=== PATIENT | female | born 1960 | race Caucasian/White ===

== ENCOUNTER 2020-08-19 08:20 | Emergency (ER) | payer MEDICAID ==
[~2020-08-19] VITALS: Ht 165.1 cm; Wt 100.2 kg
[2020-08-19 08:28] VITALS: Ht 165.1 cm; Wt 100.2 kg
[2020-08-19 09:06] LABS: BASOPHIL % 1.2 % (0.2-1.3); PLATELET COUNT 274 x10^3mcL (179-408)
[2020-08-19 09:22] LABS: RED CELL DISTRIBUTION WIDTH 17.8 % (12.3-17.7)
[2020-08-19 09:23] LABS: rbc morphology (normal/abnorm) NORMAL (NORMAL)
[2020-08-19 09:54] LABS: CALCIUM 8.6 mg/dL (8.5-10.1); CARBON DIOXIDE 25.9 mmol/L (21-32); CHLORIDE SERUM 104 mmol/L (98-107); CREATININE SERUM 0.7 mg/dL (0.6-1.0); GFR1 > 60 mL/min; GLUCOSE SERUM 97 mg/dL (74-106); POTASSIUM SERUM 4.4 mmol/L (3.5-5.1); SODIUM SERUM 140 mmol/L (136-145)
[2020-08-19 10:00] LABS: ALBUMIN 3.8 g/dL (3.4-5.0); ALKALINE PHOSPHATASE 91 U/L (46-116); ALT/SGPT 22 U/L (14-59); AST/SGOT 35 U/L (15-37); BILIRUBIN TOTAL 0.3 mg/dL (0.20-1.00); TOTAL PROTEIN, SERUM 8.1 g/dL (6.4-8.2)
[2020-08-19 11:50] VITALS: BP 188/93
[2020-08-19] MEDS ORDERED: AMLODIPINE BESY10 M2 PO (12:28)
== END 2020-08-19 14:13 | disposition home or self-care (01) ==
LOC: ED 08:20
PROVIDERS: Emergency Medicine
DX: I10 Essential (primary) hypertension (principal); R53.1 Weakness
CPT/HCPCS: 83880; J0360; J3490